=== PATIENT | female | born 1955 | race Caucasian/White ===

== ENCOUNTER 2018-06-06 07:33 | Emergency (ER) | payer BC ==
--- NOTE | 2018-06-06 07:52 | EDPHY ---
H & P Stated Complaint: L abd wall pain x2 days after yoga--"i think i have a hernia" Time Seen by Provider: 06/06/18 07:52 - Medical/Surgical History Hx Asthma: No Hx Chronic Respiratory Disease: No Hx Diabetes: No Hx Cardiac Disease: No Hx Renal Disease: No Hx Cirrhosis: No Hx Alcoholism: No Hx HIV/AIDS: No Hx Splenectomy or Spleen Trauma: No Other PMH: Htn. - Social History Smoking Status: Never smoked Constitutional: Initial Vital Signs Temperature (C) 36.5 C 06/06/18 07:36 Heart Rate 78 06/06/18 07:36 Respiratory Rate 16 06/06/18 07:36 Blood Pressure 107/75 06/06/18 07:36 O2 Sat (%) 97 06/06/18 07:36 O2 Delivery Mode Room Air Allergies/Adverse Reactions: shellfish Allergy (Severe, Uncoded 06/27/15 13:29) throat closes up Home Medications: Medication Instructions Recorded Lisinopril 06/06/18 Medical Decision Making - Diagnostics Imaging: Discussed imaging studies w/ contract runner Radiologist ED Course/Re-evaluation: CHIEF COMPLAINT: Left abdominal wall pain HISTORY OF PRESENT ILLNESS: The patient is a 62 y/o female complaining of left abdominal wall pain and swelling. Yesterday she worked out at the gym and while subsequently stretching and arching her back towards the ground she sneezed hard and developed "searing pain" along her left abdominal wall. The pain has since become more "sore" in quality, but she has since noticed a swollen area along her left abdominal wall that she is concerned could be a hernia. She notes she performed some heavy lifting recently as well that could be contributing to her symptoms. She denies vomiting, diarrhea, fever, urinary symptoms, or other complaints. REVIEW OF SYSTEMS: A comprehensive 10 system review of systems is otherwise negative aside from elements mentioned in the history of present illness and medical decision making. PHYSICAL EXAM: HR, BP, O2 Sat, RR. Temp noted General Appearance: Alert, well hydrated, appropriate, and non-toxic appearing. Head: Atraumatic without scalp tenderness or obvious injury Eyes: Pupils equal, round, reactive to light and accommodation, EOMI, no trauma , no injection. Nose: Atraumatic, no rhinorrhea, clear. Throat: Mucus membranes moist. Neck: Supple. Respiratory: No retractions, no distress, no wheezes, and no accessory muscle use. Lungs are clear to auscultation bilaterally. Cardiovascular: Regular rate and rhythm, no murmurs, rubs, or gallops. Good capillary refill all extremities. Gastrointestinal: Abdomen is soft, slight tenderness along left abdomen with mild overlying swelling, non-distended, no masses, no rebound, no guarding, no peritoneal signs. Musculoskeletal: Normal active ROM of all extremities, atraumatic. Neurological: Alert, appropriate, and interactive. Nonfocal. Skin: No rashes, good turgor, no nodules on palpation. Past medical history: Hypertension Past surgical history: Family history: Noncontributory Social history: at bedside. Lives in [place]. PCP: Dr. Garcia. DIAGNOSTICS/PROCEDURES/CRITICAL CARE TIME: Abdominal US: Abdominal wall hematoma DIFFERENTIAL DIAGNOSIS: The differential diagnosis for the patient's abdominal pain included but was not limited to ovarian cyst, pelvic inflammatory disease, ovarian torsion, urinary tract infection, ectopic , cholecystitis, and appendicitis. MEDICAL DECISION MAKING: This is a healthy 62 y/o female who presents with left-sided abdominal wall tenderness and swelling following a yoga pose and heavy lifting yesterday. She has mild left abdominal wall tenderness and swelling on exam. Suspect hematoma. Plan for abdominal US for further evaluation. US shows abdominal wall hematoma. Reassessed patient and discussed findings. She will be discharged with standard care and follow up instructions. Return precautions discussed. Departure - Departure Disposition: Home, Routine, Self-Care Clinical Impression: Abdominal wall hematoma Qualifiers: Encounter type: initial encounter Qualified Code(s): S30.1XXA - Contusion of abdominal wall, initial encounter Condition: Good Instructions: Contusion in Adults (ED) Additional Instructions: Avoid strenuous activity and abdominal wall stretching until hematoma has improved. Follow up with your primary care provider as needed. Return to the ED for worsening of condition. Referrals: Marlene Garcia MD [Primary Care Provider] - As per Instructions Report Scribed for: Oleg Bui Report Scribed by: Kristie Billy Date of Report: 06/06/18 Time of Report: 08:06
[2018-06-06 09:48] VITALS: BP 147/99
== END 2018-06-06 09:47 | disposition home or self-care (01) ==
DX: S30.1XXA Contusion of abdominal wall, initial encounter (principal); I10 Essential (primary) hypertension; Y93.B9 Activity, other involving muscle strengthening exercises; Y92.838 Other recreation area as the place of occurrence of the external cause; Y99.9 Unspecified external cause status

== ENCOUNTER → 2018-09-02 | Outpatient (CLI) | payer BC | LOC: BMCIMAGING 10:00 | PROVIDERS: ATTEND Internal Medicine | DX: Z13.820 Encounter for screening for osteoporosis (principal); M85.80 Other specified disorders of bone density and structure, unspecified site; E28.39 Other primary ovarian failure ==